=== PATIENT | female | born 1960 | race Asian ===

== ENCOUNTER 2016-09-30 07:49 | Emergency (ER) | payer OTHER ==
[~2016-09-30] VITALS: Ht 162.6 cm; Wt 59.0 kg
[2016-09-30] MEDS ORDERED: IBUPROFEN 600 MG TABLET PO ONE (09:15)
[2016-09-30 11:37] VITALS: BP 128/78
== END 2016-09-30 11:45 | disposition home or self-care (01) ==
LOC: EMS 07:51
DX: S13.4XXA Sprain of ligaments of cervical spine, initial encounter (principal); R07.89 Other chest pain; Z88.6 Allergy status to analgesic agent; V89.2XXA Person injured in unspecified motor-vehicle accident, traffic, initial encounter; Y93.89 Activity, other specified; Y92.89 Other specified places as the place of occurrence of the external cause; Y99.8 Other external cause status
CPT/HCPCS: 99283